=== PATIENT | female | born 1980 | race Two or more races ===

== ENCOUNTER 2020-02-28 16:45 | Emergency (ER) | payer MEDICAID ==
[~2020-02-28] VITALS: Ht 162.6 cm; Wt 76.7 kg
--- NOTE | 2020-02-28 16:55 | NUR ---
STEFANO APPIAH AT BS FOR EVAL.
--- NOTE | 2020-02-28 17:02 | NUR ---
[id number] FOR BLEEDING FROM ABSCESS ON LT AXILLA. PT EYES OPEN NON VERBAL. RR EVEN & UNLABORED. NAD NOTED AT THIS TIME. WILL CONT TO MONITOR.
[2020-02-28] MEDS ORDERED: GELATIN SPONGE,ABSORBABLE 1 SPONGE SPONGE TP ONE (17:19)
--- NOTE | 2020-02-28 18:54 | NUR ---
CALLED [facility] ETA IS 45 MINS.
--- NOTE | 2020-02-28 19:33 | NUR ---
Patient discharged to home in stable condition. Written and verbal after care instructions given. Patient verbalizes understanding of instruction. PT EN ROUTE TO [facility] ([facility] FOR CONT OF CARE.
[2020-02-28 19:34] VITALS: BP 128/74
== END 2020-02-28 19:35 ==
LOC: ER 16:48
DX: L76.22 Postprocedural hemorrhage of skin and subcutaneous tissue following other procedure (principal); L02.412 Cutaneous abscess of left axilla; I12.0 Hypertensive chronic kidney disease with stage 5 chronic kidney disease or end stage renal disease; E11.22 Type 2 diabetes mellitus with diabetic chronic kidney disease; N18.6 End stage renal disease; Z99.2 Dependence on renal dialysis; Z98.890 Other specified postprocedural states; Z93.0 Tracheostomy status; Z93.1 Gastrostomy status; Z86.73 Personal history of transient ischemic attack (TIA), and cerebral infarction without residual deficits
CPT/HCPCS: 99283; A6403; A6407